=== PATIENT | female | born 1930 | race Caucasian/White ===

== ENCOUNTER 2017-06-16 10:09 | Emergency (ER) | payer MEDICARE ==
[~2017-06-16] VITALS: Ht 160 cm; Wt 93.0 kg
[~2017-06-16 10:09] MED LIST: ALPR.25 PO; Amoxicillin PO; ENAL10TA PO; MECL-62 PO; MISC-274 XX; SYNT112T PO
[2017-06-16 10:15] VITALS: BP 188/90; PULSE 81; RESP 16; TEMP 97.5; O2SAT 98
--- NOTE | 2017-06-16 10:43 | PD ---
HPI Chief Complaint: Neuro Symptoms/ Deficits Time Seen by Provider: 10:20 Travel History International Travel<30 days: No Contact w/Intl Traveler<30days: No Traveled to known affect area: No History of Present Illness HPI The patient was seen and examined in the presence of the nurse. This is a very anxious patient who takes Xanax 3 times a day. She was worried that yesterday she had a mini stroke. She was eating lunch and had a couple minutes were she didn't recognize someone's name or she should've recognized. He did not have muscle weakness or sensory loss or speech slurring or headache. She feels fine today no history of stroke or mini stroke. Takes no blood thinners. No head injury. No fever. Duration was 2 minutes. No alleviating factors. No exacerbating factors PFSH Past Medical History Anxiety: Yes Heart Rhythm Problems: Yes (PT STATES, "IRREGULAR HEART BEAT.") Cardiovascular Problems: Yes Diminished Hearing: No Hypertension: Yes Immunizations Current: No Thyroid Disease: Yes Menopausal: Yes Past Surgical History Eye Surgery: Yes (CATARACTS BILAT) Social History Alcohol Use: Yes (OCCASIONA) Tobacco Use: No Substance Use: No Allergies-Medications (Allergen,Severity, Reaction): Coded Allergies: aspirin (Unverified Allergy, Severe, LIPS SWELL, 11/26/16) sulfite (Unverified Allergy, Severe, Rash, 11/26/16) propoxyphene (Unverified Adverse Reaction, Intermediate, BEHAVIORAL, ) Reported Meds & Prescriptions Reported Meds & Active Scripts Active Folding Walker/5" Wheels (Device) 1 Mis Mis 1 Units XX PRN Use walker when ambulating Meclizine (Meclizine HCl) 25 Mg Tab 25 Mg PO Q6HR Enalapril (Enalapril Maleate) 10 Mg Tab 20 Mg PO BID [Amoxicillin] 875 MG Tab 875 Mg PO Q12HR Reported Xanax (Alprazolam) 0.25 Mg Tab 0.25 Mg PO Q4H PRN Synthroid (Levothyroxine Sodium) 112 Mcg Tab 112 Mcg PO DAILY Review of Systems General / Constitutional: No: Fever Eyes: No: Visual changes HENT: No: Headaches Cardiovascular: No: Chest Pain or Discomfort Respiratory: No: Shortness of Breath Gastrointestinal: No: Abdominal Pain Genitourinary: No: Dysuria Musculoskeletal: No: Pain Skin: No Rash Neurologic: No: Weakness Psychiatric: Positive: Anxiety, No: Depression Endocrine: No: Polydipsia Hematologic/Lymphatic: No: Easy Bruising Physical Exam Narrative GENERAL: Well-nourished, well-developed patient in no apparent distress. SKIN: Focused skin assessment reveals no rash and nodules. Skin is Warm and dry. HEAD: Atraumatic. Normocephalic. EYES: Pupils equal and round. No scleral icterus. No injection or drainage. ENT: No nasal bleeding or discharge. Mucous membranes pink and moist. NECK: Trachea midline. No JVD. CARDIOVASCULAR: Regular rate and rhythm. No murmur appreciated. RESPIRATORY: No accessory muscle use. Clear to auscultation. Breath sounds equal bilaterally. GASTROINTESTINAL: Abdomen soft, non-tender, nondistended. Hepatic and splenic margins not palpable. MUSCULOSKELETAL: No obvious deformities. No clubbing. No cyanosis. No edema. NEUROLOGICAL: Awake and alert. No obvious cranial nerve deficits. Motor grossly within normal limits. Normal speech. PSYCHIATRIC: Anxious mood and affect; insight and judgment normal. Data Data Last Documented VS Vital Signs Date Time Temp Pulse Resp B/P (MAP) Pulse Ox O2 Delivery O2 Flow Rate FiO2 06/16/17 11:30 78 20 134/67 (89) 95 Room Air 06/16/17 10:[address] Brain W/O Iv Contrast(Rout) (06/16/17 ) Complete Blood Count With Diff (06/16/17 10:38) Basic Metabolic Panel (Bmp) (06/16/17 10:38) Iv Access Insert/Monitor (06/16/17 10:38) Clonidine (Catapres) (06/16/17 10:45) Labs Laboratory Tests Test 06/16/17 10:55 White Blood Count 22.7 TH/MM3 Red Blood Count 4.22 MIL/MM3 Hemoglobin 13.4 GM/DL Hematocrit 39.8 % Mean Corpuscular Volume 94.2 FL Mean Corpuscular Hemoglobin 31.9 PG Mean Corpuscular Hemoglobin Concent 33.8 % Red Cell Distribution Width 13.1 % Platelet Count 163 TH/MM3 Mean Platelet Volume 8.2 FL Neutrophils (%) (Auto) 23.9 % Lymphocytes (%) (Auto) 69.1 % Monocytes (%) (Auto) 4.6 % Eosinophils (%) (Auto) 1.4 % Basophils (%) (Auto) 1.0 % Neutrophils # (Auto) 5.4 TH/MM3 Lymphocytes # (Auto) 15.8 TH/MM3 Monocytes # (Auto) 1.0 TH/MM3 Eosinophils # (Auto) 0.3 TH/MM3 Basophils # (Auto) 0.2 TH/MM3 CBC Comment AUTO DIFF Differential Total Cells Counted 100 Neutrophils % (Manual) 39 % Lymphocytes % 57 % Monocytes % 4 % Neutrophils # (Manual) 8.9 TH/MM3 Differential Comment FINAL DIFF MANUAL Smudge Cells PRESENT Toxic Granulation 1+ Platelet Estimate NORMAL Platelet Morphology Comment NORMAL Stomatocytes 1+ Blood Urea Nitrogen 12 MG/DL Creatinine 0.59 MG/DL Random Glucose 113 MG/DL Calcium Level 9.0 MG/DL Sodium Level 141 MEQ/L Potassium Level 3.9 MEQ/L Chloride Level 107 MEQ/L Carbon Dioxide Level 27.9 MEQ/L Anion Gap 6 MEQ/L Estimat Glomerular Filtration Rate 97 ML/MIN MDM Medical Decision Making Medical Screen Exam Complete: Yes Emergency Medical Condition: Yes Medical Record Reviewed: Yes Differential Diagnosis Xanax withdrawal, TIA, anxiety Narrative Course I have reviewed the patient's electronic medical record. 1040: Neurologic exam is normal. I don't see evidence of CVA or deficit. I've ordered a workup. She is in a sinus rhythm Extended cardiac monitoring reveals sinus rhythm without ectopy 11:00: I gave her dose of clonidine for blood pressure 200 systolic. We'll reassess later 1210: Blood pressure now 120/64 She is still neurologically normal Brain CT is normal Metabolic studies are normal CBC shows leukocytosis as expected for her condition of CLL Recommend primary care follow-up. We discussed signs and symptoms of stroke such as muscle weakness or speech slurring etc. and if she develops any she will return promptly to be evaluated her and likely admitted I'm not suspicious of TIA or CVA based on her history and workup Diagnosis Primary Impression: Confusion Additional Impressions: Hypertension Qualified Codes: I10 - Essential (primary) hypertension CLL (chronic lymphocytic leukemia) Additional Instructions: The patient was advised to follow up with their physician and return if they worsen. Med/Other Pt SpecificInfo: Other Disposition: 01 DISCHARGE HOME Condition: Stable Clif Sue MD Jun 16, 2017 10:43
[2017-06-16] MEDS ORDERED: cloNIDine HCL 0.1 MG TAB PO ONE (10:45)
[2017-06-16 11:04] LABS: AUTOMATED NEUTROPHIL # 5.4 TH/MM3 (1.8-7.7); BASOPHIL # 0.2 TH/MM3 (0-0.2); EOSINOPHIL # 0.3 TH/MM3 (0-0.4); EOSINOPHIL % 1.4 % (0.0-4.0); HEMATOCRIT 39.8 % (35.0-46.0); HEMOGLOBIN 13.4 GM/DL (11.6-15.3); LYMPH % 69.1 % (9.0-44.0); LYMPHOCYTE # 15.8 TH/MM3 (1.0-4.8); MEAN CELL VOLUME 94.2 FL (80.0-100.0); MEAN CORPUSCULAR HEMOGLOBIN 31.9 PG (27.0-34.0); MEAN CORPUSCULAR HGB CONC 33.8 % (32.0-36.0); MEAN PLATELET VOLUME 8.2 FL (7.0-11.0); MONO % 4.6 % (0.0-8.0); NEUT % 23.9 % (16.0-70.0); PLATELET COUNT 163 TH/MM3 (150-450); RED BLOOD COUNT 4.22 MIL/MM3 (4.00-5.30); RED CELL DISTRIBUTION WIDTH 13.1 % (11.6-17.2); WHITE BLOOD COUNT 22.7 TH/MM3 (4.0-11.0)
[2017-06-16 11:16] LABS: BICARBONATE 27.9 MEQ/L (21.0-32.0)
[2017-06-16 11:19] LABS: CREATININE 0.59 MG/DL (0.50-1.00)
--- NOTE | 2017-06-16 11:26 | RADRPT ---
EXAM DATE/TIME: 06/16/2017 11:06 [facility] COMPARISON: CT BRAIN W/O CONTRAST, March 09, 2016, 20:33. INDICATIONS : Episode of confusion yesterday. RADIATION DOSE: 60.06 CTDIvol (mGy) MEDICAL HISTORY : Hypertension. SURGICAL HISTORY : None. ENCOUNTER: Initial ACUITY: 1 day PAIN SCALE: 0/10 LOCATION: cranial TECHNIQUE: Multiple contiguous axial images were obtained of the head. Using automated exposure control and adj ustment of the mA and/or kV according to patient size, radiation dose was kept as low as reasonably a chievable to obtain optimal diagnostic quality images. DICOM format image data is available electro nically for review and comparison. 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 This is unchanged. The ventricles ar e normal for age. No evidence of midline shift, mass lesion, hemorrhage or acute infarction. No ext ra-axial fluid collections are seen. POSTERIOR FOSSA: The cerebellum and brainstem are intact. The 4th ventricle is midline. The cerebellopontine angle i s unremarkable. EXTRACRANIAL: The visualized portion of the orbits is intact. Mucosal thickening involving ethmoid air cells bilate rally. No air-fluid levels. SKULL: The calvaria is intact. No evidence of skull fracture. CONCLUSION: 1. No acute intracranial abnormality. Camacho Jean Jr., MD on June 16, 2017 at 11:23 Board Certified Radiologist. This report was verified electronically.
[2017-06-16 11:30] VITALS: BP 134/67; PULSE 78; RESP 20; RESP 50; O2SAT 95
[2017-06-16 11:41] LABS: LYMPHOCYTES 57 % (9-44); MONOCYTES 4 % (0-8); NEUTROPHIL # MANUAL DIFF 8.9 TH/MM3 (1.8-7.7); POLYS (SEG NEUTROPHILS) 39 % (16-70)
[2017-06-16 11:42] LABS: STOMATOCYTES 1+ (NORMAL); TOXIC GRANULATION 1+ (NORMAL)
[2017-06-16 11:45] LABS: SMUDGE CELLS PRESENT PRESENT
[2017-06-16 12:35] VITALS: BP 140/70
== END 2017-06-16 12:38 | disposition home or self-care (01) ==
LOC: PHED 10:09
DX: R41.0 Disorientation, unspecified (principal); I10 Essential (primary) hypertension; C91.10 Chronic lymphocytic leukemia of B-cell type not having achieved remission; D72.829 Elevated white blood cell count, unspecified; F41.9 Anxiety disorder, unspecified; E07.9 Disorder of thyroid, unspecified; Z79.899 Other long term (current) drug therapy; Z88.6 Allergy status to analgesic agent; Z88.8 Allergy status to other drugs, medicaments and biological substances
CPT/HCPCS: 70450; 80048; 85007; 85027; 99284